=== PATIENT | female | born 1945 | race Caucasian/White ===

== ENCOUNTER 2021-10-15 13:35 | Inpatient (IN) | payer MEDICARE ==
[2021-10-15 15:22] LABS: Actual Bicarbonate (HCO3a) 20.2 mEq/L (22-28); Base Excess (BEa) -4.8 mEq/L (-2.0 to +3.0); CO2 Tension 36.8 mmHg (35.0-45.0); Calcium, Ionized (arterial) 1.13 mmol/L (1.12-1.30); Carboxyhemoglobin (COHb) 1.1 gm% (0.0-3.0); Hemoglobin (Hb) 10.2 g/dL (12.0-16.0); O2 Tension (PaO2), arterial 206.5 mmHg (> 70.0); Potassium - ABG Lab 4.7 mmol/L (3.70-5.30); Puncture Site RRA; pH, Arterial 7.36 (7.35-7.45)
[2021-10-15] MEDS ORDERED: Ondansetron PF 4 MG/2 ML Vial IVP PRN (15:27)
[2021-10-15] MEDS ORDERED: Acetaminophen 325 MG TAB PO PRN (15:27)
[2021-10-15] MEDS ORDERED: Levalbuterol HCl 0.63 MG/3 ML NEB NEB SCH (16:30)
[2021-10-15] MEDS ORDERED: Meropenem 1 GM in Sodium Chloride 0.9% 100 ML IVPB SCH ×2 (16:45→22:00)
[2021-10-15] MEDS: Apixaban 5 MG TAB PO SCH (20:25)
[2021-10-15] MEDS ORDERED: Vancomycin 1 GM in Premix Bag 1 BAG IVPB SCH (21:00)
[2021-10-16] MEDS ORDERED: Meropenem 1 GM in Sodium Chloride 0.9% 100 ML IVPB SCH (04:45)
[2021-10-16 04:49] LABS: #Monocytes 0.7 10x3/uL (0.0-1.1); #Neutrophils 14.4 10x3/uL (1.5-8.4); %Basophils 0.2 % (0.0-2.0); %Eosinophils 0.1 % (0.0-6.0); %Lymphocytes 11.3 % (18.0-47.0); %Monocytes 3.8 % (0.0-10.0); %Neutrophils 83.6 % (40.0-75.0); Hemoglobin 9.4 g/dL (12.0-15.5); Mean Corpuscular HGB CONC 30.8 g/dL (32.0-36.0); Mean Corpuscular Volume 103.7 fl (81.6-98.3); Mean Platelet Volume 10.5 fl (7.4-10.4); Platelet Count 389 10x3/uL (150-450); RBC Distribution Width 17.8 % (11.5-14.5); Red Blood Cell (RBC) Count 2.94 10x6/uL (3.90-5.03); White Blood Cell (WBC) Count 17.2 10x3/uL (3.5-10.5)
[2021-10-16] MEDS ORDERED: Norepinephrine 8 MG/0.9% NS 0 ML ONE (04:56)
[2021-10-16 05:02] LABS: Anion Gap 14 mmol/L (10-20); BUN (Urea Nitrogen) 26 mg/dL (9.8-20.1); Calc. Creatinine Clearance 82 mL/min (70-130); Calcium 8.8 mg/dL (7.8-10.44); Carbon Dioxide 18 mmol/L (23-31); Chloride 110 mmol/L (98-107); Glucose 134 mg/dL (83-110); Sodium 137 mmol/L (136-145)
[2021-10-16] MEDS: Levothyroxine Sodium 75 MCG TAB PO SCH (05:07)
[2021-10-16] MEDS: Levothyroxine Sodium 100 MCG TAB PO SCH (05:07)
[2021-10-16] MEDS ORDERED: Norepinephrine 8 MG/0.9% NS 250 ML IVPB SCH (07:30)
[2021-10-16] MEDS: Furosemide 20 MG/2 ML VIAL SLOW IVP SCH (08:05)
[2021-10-16] MEDS: Apixaban 5 MG TAB PO SCH ×2 (08:05→20:14)
[2021-10-16] MEDS: Aspirin 81 mg Enteric Coated Tablet PO SCH (08:05)
[2021-10-16] MEDS ORDERED: LEVOTHYROXINE SODIUM 200 MCG PO SCH (09:00)
[2021-10-16] MEDS ORDERED: predniSONE 10 MG TAB PO SCH (09:00)
[2021-10-16] MEDS ORDERED: Propranolol HCl LA 60 MG CAP PO SCH (09:00)
[2021-10-16] MEDS: VANCOMYCIN 1.25 GM/250 ML BAG 1.25 GM in Premix Bag 1 BAG IVPB SCH (11:36)
[2021-10-16 12:07] LABS: Lactic Acid 1.5 mmol/L (0.5-2.2)
[2021-10-16 12:11] LABS: Legionella Urinary Ag Negative (Negative); Strep pneumo Urine Ag NEGATIVE (NEGATIVE)
[2021-10-16] MEDS: Meropenem 1 GM in Sodium Chloride 0.9% 100 ML IVPB SCH ×2 (12:31→20:15)
[2021-10-16 13:49] LABS: ALV-art Gradient 276.475 mmHg (0-20); Actual Bicarbonate (HCO3a) 23.3 mEq/L (22-28); Base Excess (BEa) 1.2 mEq/L (-2.0 to +3.0); CO2 Tension 30.3 mmHg (35.0-45.0); Calcium, Ionized (arterial) 1.11 mmol/L (1.12-1.30); O2 Tension (PaO2), arterial 149.1 mmHg (> 70.0); Potassium - ABG Lab 4.1 mmol/L (3.70-5.30); Puncture Site LBA
[2021-10-16] MEDS: methylPREDNISolone Sod Succ/PF 125 MG/2 ML VIAL IVP SCH (17:23)
[2021-10-17 03:31] LABS: Actual Bicarbonate (HCO3a) 25.3 mEq/L (22-28); Base Excess (BEa) 1.1 mEq/L (-2.0 to +3.0); CO2 Tension 38.6 mmHg (35.0-45.0); Calcium, Ionized (arterial) 1.18 mmol/L (1.12-1.30); Carboxyhemoglobin (COHb) 0.3 gm% (0.0-3.0); Hemoglobin (Hb) 9.2 g/dL (12.0-16.0); O2 Tension (PaO2), arterial 124.4 mmHg (> 70.0); Potassium - ABG Lab 4.2 mmol/L (3.70-5.30); Puncture Site RRA; pH, Arterial 7.44 (7.35-7.45)
[2021-10-17 04:59] LABS: #Monocytes 0.3 10x3/uL (0.0-1.1); #Neutrophils 11.7 10x3/uL (1.5-8.4); %Basophils 0.2 % (0.0-2.0); %Lymphocytes 6.7 % (18.0-47.0); %Monocytes 2.5 % (0.0-10.0); %Neutrophils 89.5 % (40.0-75.0); Hemoglobin 8.5 g/dL (12.0-15.5); Mean Corpuscular HGB CONC 30.7 g/dL (32.0-36.0); Mean Corpuscular Hemoglobin 31.6 pg (27.0-33.0); Mean Platelet Volume 10.7 fl (7.4-10.4); Platelet Count 277 10x3/uL (150-450); RBC Distribution Width 17.7 % (11.5-14.5); Red Blood Cell (RBC) Count 2.69 10x6/uL (3.90-5.03); White Blood Cell (WBC) Count 13.1 10x3/uL (3.5-10.5)
[2021-10-17 05:02] LABS: Anion Gap 15 mmol/L (10-20); BUN (Urea Nitrogen) 21 mg/dL (9.8-20.1); CRP (Inflammatory) 20.08 mg/dL (= or < 0.5); Calc. Creatinine Clearance 116 mL/min (70-130); Calcium 8.9 mg/dL (7.8-10.44); Carbon Dioxide 23 mmol/L (23-31); Chloride 108 mmol/L (98-107); Glucose 135 mg/dL (83-110); Potassium 4.5 mmol/L (3.5-5.1); Sodium 141 mmol/L (136-145)
[2021-10-17] MEDS: Levothyroxine Sodium 75 MCG TAB PO SCH (05:05)
[2021-10-17] MEDS: Meropenem 1 GM in Sodium Chloride 0.9% 100 ML IVPB SCH ×3 (05:05→20:16)
[2021-10-17] MEDS: Levothyroxine Sodium 100 MCG TAB PO SCH (05:05)
[2021-10-17] MEDS ORDERED: Lorazepam 2 MG/ML VIAL SLOW IVP SCH (05:30)
[2021-10-17] MEDS: Furosemide 20 MG/2 ML VIAL SLOW IVP SCH (08:20)
[2021-10-17] MEDS: Aspirin 81 mg Enteric Coated Tablet PO SCH (08:21)
[2021-10-17] MEDS: Apixaban 5 MG TAB PO SCH ×2 (08:21→20:16)
[2021-10-17] MEDS: Lantus 1000 UNITS/10 ML VIAL SC SCH (08:51)
[2021-10-17] MEDS ORDERED: Famotidine/PF 20 mg/2ml Vial SLOW IVP SCH (09:00)
[2021-10-17] MEDS ORDERED: Furosemide 40 MG/4 ML VIAL SLOW IVP SCH ×2 (10:15→15:30)
[2021-10-17 11:46] LABS: Vancomycin, Trough 10.6 ug/mL
[2021-10-17] MEDS: VANCOMYCIN 1.75 GM/350 ML BAG 1.75 GM in Premix Bag 1 BAG IVPB SCH (13:00)
[2021-10-17] MEDS: VANCOMYCIN 1.25 GM/250 ML BAG 1.25 GM in Premix Bag 1 BAG IVPB SCH (13:05)
[2021-10-17] MEDS ORDERED: Meropenem 1 GM VIAL ONE (13:10)
[2021-10-17] MEDS: Dexmedetomidine In 0.9 % NaCl 100 ML IVPB SCH ×2 (15:25→22:20)
[2021-10-17] MEDS ORDERED: Dexmedetomidine In 0.9 % NaCl 100 ML ONE (15:25)
[2021-10-17 16:06] LABS: Actual Bicarbonate (HCO3a) 31.2 mEq/L (22-28); Base Excess (BEa) 6.6 mEq/L (-2.0 to +3.0); CO2 Tension 44.4 mmHg (35.0-45.0); Calcium, Ionized (arterial) 1.19 mmol/L (1.12-1.30); Carboxyhemoglobin (COHb) 0.4 gm% (0.0-3.0); Hemoglobin (Hb) 11.2 g/dL (12.0-16.0); O2 Tension (PaO2), arterial 63.5 mmHg (> 70.0); Potassium - ABG Lab 3.6 mmol/L (3.70-5.30); Puncture Site LBA; pH, Arterial 7.46 (7.35-7.45)
[2021-10-17] MEDS: methylPREDNISolone Sod Succ/PF 125 MG/2 ML VIAL IVP SCH (17:13)
[2021-10-17 17:28] LABS: ALV-art Gradient 600.525 mmHg (0-20); Actual Bicarbonate (HCO3a) 29.7 mEq/L (22-28); Base Excess (BEa) 4.8 mEq/L (-2.0 to +3.0); CO2 Tension 45.5 mmHg (35.0-45.0); Calcium, Ionized (arterial) 1.21 mmol/L (1.12-1.30); Carboxyhemoglobin (COHb) 0.6 gm% (0.0-3.0); Hemoglobin (Hb) 11.4 g/dL (12.0-16.0); O2 Tension (PaO2), arterial 55.6 mmHg (> 70.0); Potassium - ABG Lab 3.8 mmol/L (3.70-5.30); Puncture Site RRA; pH, Arterial 7.43 (7.35-7.45)
[2021-10-17] MEDS: Furosemide 40 MG/4 ML VIAL SLOW IVP SCH (20:17)
[2021-10-18] MEDS ORDERED: Lorazepam 2 MG/ML VIAL SLOW IVP SCH (01:45)
[2021-10-18] MEDS ORDERED: Digoxin 0.5 MG/2 ML AMP ONE (03:26)
[2021-10-18] MEDS ORDERED: Digoxin 0.5 MG/2 ML AMP SLOW IVP SCH ×2 (03:45→08:00)
[2021-10-18] MEDS: Dexmedetomidine In 0.9 % NaCl 100 ML IVPB SCH ×3 (03:49→09:52)
[2021-10-18 04:19] LABS: ALV-art Gradient 604.625 mmHg (0-20); Actual Bicarbonate (HCO3a) 31.5 mEq/L (22-28); Base Excess (BEa) 7.6 mEq/L (-2.0 to +3.0); CO2 Tension 41.5 mmHg (35.0-45.0); Calcium, Ionized (arterial) 1.18 mmol/L (1.12-1.30); Carboxyhemoglobin (COHb) 0.7 gm% (0.0-3.0); O2 Tension (PaO2), arterial 56.5 mmHg (> 70.0); Potassium - ABG Lab 3.5 mmol/L (3.70-5.30); Puncture Site RRA
[2021-10-18] MEDS: Levothyroxine Sodium 75 MCG TAB PO SCH (05:08)
[2021-10-18] MEDS: Levothyroxine Sodium 100 MCG TAB PO SCH (05:08)
[2021-10-18] MEDS: Meropenem 1 GM in Sodium Chloride 0.9% 100 ML IVPB SCH ×3 (05:25→20:22)
[2021-10-18 05:35] LABS: Red Blood Cell (RBC) Count 3.24 10x6/uL (3.90-5.03); White Blood Cell (WBC) Count 15.2 10x3/uL (3.5-10.5)
[2021-10-18 05:36] LABS: %Neutrophils 86.2 % (40.0-75.0); Hemoglobin 10.2 g/dL (12.0-15.5); Mean Corpuscular Hemoglobin 31.5 pg (27.0-33.0); Mean Corpuscular Volume 98.5 fl (81.6-98.3); Mean Platelet Volume 11.1 fl (7.4-10.4); RBC Distribution Width 17.6 % (11.5-14.5)
[2021-10-18 05:37] LABS: #Neutrophils 13.1 10x3/uL (1.5-8.4); %Basophils 0.1 % (0.0-2.0); %Lymphocytes 5.5 % (18.0-47.0); %Monocytes 6.5 % (0.0-10.0)
[2021-10-18 05:39] LABS: Platelet Count 352 10x3/uL (150-450)
[2021-10-18 05:41] LABS: ALT (SGPT) 22 U/L (8-55); AST (SGOT) 35 U/L (5-34); Albumin 3.3 g/dL (3.4-4.8); Alkaline Phosphatase 195 U/L (40-110); Anion Gap 21 mmol/L (10-20); BUN (Urea Nitrogen) 29 mg/dL (9.8-20.1); Bilirubin, Total 0.9 mg/dL (0.2-1.2); Calc. Creatinine Clearance 95 mL/min (70-130); Calcium 9.1 mg/dL (7.8-10.44); Carbon Dioxide 26 mmol/L (23-31); Chloride 102 mmol/L (98-107); Globulin 3.1 g/dL (2.4-3.5); Glucose 159 mg/dL (83-110); Magnesium 1.9 mg/dL (1.6-2.6); Phosphorus 3.5 mg/dL (2.3-4.7); Potassium 3.9 mmol/L (3.5-5.1); Protein, Total 6.4 g/dL (5.8-8.1); Sodium 145 mmol/L (136-145)
[2021-10-18 08:57] LABS: CKMB 1.2 ng/mL (0-6.6)
[2021-10-18] MEDS: Enoxaparin Sodium 120 MG/0.8 ML SYRINGE SC SCH ×2 (09:07→20:23)
[2021-10-18] MEDS: Furosemide 40 MG/4 ML VIAL SLOW IVP SCH (09:09)
[2021-10-18] MEDS: Lantus 1000 UNITS/10 ML VIAL SC SCH (09:45)
[2021-10-18] MEDS ORDERED: DISCONTINUE PREVIOUS NARCOTIC PAIN MEDICATIONS AND BENZODIAZEPINES FS SCH (10:15)
[2021-10-18] MEDS ORDERED: Propofol BOLUS 1,000 MG/100 ML VIAL IV PRN (10:15)
[2021-10-18] MEDS ORDERED: Lorazepam 2 MG/ML VIAL SLOW IVP PRN (10:15)
[2021-10-18] MEDS ORDERED: Fentanyl BOLUS 250 ML IVPB PRN (10:15)
[2021-10-18] MEDS ORDERED: Morphine 2 MG/ML VIAL SLOW IVP PRN (10:15)
[2021-10-18] MEDS ORDERED: Fentanyl CADD 100 ML IVPB SCH (10:15)
[2021-10-18] MEDS ORDERED: Ventilator Sedation Protocol 1 EACH FS PRN (10:15)
[2021-10-18 11:35] LABS: Actual Bicarbonate (HCO3a) 30.5 mEq/L (22-28); CO2 Tension 49.2 mmHg (35.0-45.0); Calcium, Ionized (arterial) 1.19 mmol/L (1.12-1.30); Carboxyhemoglobin (COHb) 0.8 gm% (0.0-3.0); Hemoglobin (Hb) 10.7 g/dL (12.0-16.0); O2 Tension (PaO2), arterial 57.6 mmHg (> 70.0); Potassium - ABG Lab 3.8 mmol/L (3.70-5.30); Puncture Site RRA; pH, Arterial 7.41 (7.35-7.45)
[2021-10-18] MEDS ORDERED: Ventilator Sedation Protocol 1 EACH FS SCH (12:00)
[2021-10-18] MEDS: Propofol 1,000 MG/100 ML VIAL IV PRN ×5 (12:14→23:16)
[2021-10-18] MEDS ORDERED: Sodium Chloride 0.9% 1,000 ML IV SCH (12:24)
[2021-10-18] MEDS: Insulin Regular 300 UNITS/3 ML VIAL SC PRN (13:09)
[2021-10-18] MEDS: fentaNYL Citrate-0.9 % NaCl/PF 100 ML IVPB SCH (13:14)
[2021-10-18] MEDS: VANCOMYCIN 1.75 GM/350 ML BAG 1.75 GM in Premix Bag 1 BAG IVPB SCH (13:35)
[2021-10-18] MEDS ORDERED: Sodium Chloride 0.9% 100 ML ONE (13:45)
[2021-10-18] MEDS: Albumin 25% 25 GM/100 ML BOT IVPB SCH ×2 (14:11→20:23)
[2021-10-18] MEDS: methylPREDNISolone Sod Succ/PF 125 MG/2 ML VIAL IVP SCH (17:28)
[2021-10-18] MEDS: Atorvastatin Calcium 40 MG TAB PER TUBE SCH (20:22)
[2021-10-18] MEDS: Famotidine/PF 20 mg/2ml Vial SLOW IVP SCH (20:22)
[2021-10-19] MEDS: Propofol 1,000 MG/100 ML VIAL IV PRN ×8 (02:19→22:26)
[2021-10-19] MEDS: Albumin 25% 25 GM/100 ML BOT IVPB SCH (03:41)
[2021-10-19 04:21] LABS: Hemoglobin 8.6 g/dL (12.0-15.5); Mean Corpuscular HGB CONC 30.6 g/dL (32.0-36.0); Mean Corpuscular Hemoglobin 31.5 pg (27.0-33.0); Mean Corpuscular Volume 102.9 fl (81.6-98.3); Mean Platelet Volume 10.7 fl (7.4-10.4); Platelet Count 280 10x3/uL (150-450); RBC Distribution Width 17.6 % (11.5-14.5); Red Blood Cell (RBC) Count 2.73 10x6/uL (3.90-5.03)
[2021-10-19 04:31] LABS: ALT (SGPT) 17 U/L (8-55); AST (SGOT) 17 U/L (5-34); Albumin 3.3 g/dL (3.4-4.8); Alkaline Phosphatase 133 U/L (40-110); Anion Gap 14 mmol/L (10-20); BUN (Urea Nitrogen) 30 mg/dL (9.8-20.1); Bilirubin, Total 0.8 mg/dL (0.2-1.2); CRP (Inflammatory) 11.35 mg/dL (= or < 0.5); Calc. Creatinine Clearance 114 mL/min (70-130); Calcium 9.2 mg/dL (7.8-10.44); Carbon Dioxide 29 mmol/L (23-31); Chloride 106 mmol/L (98-107); Globulin 2.8 g/dL (2.4-3.5); Glucose 153 mg/dL (83-110); Magnesium 2.2 mg/dL (1.6-2.6); Potassium 3.4 mmol/L (3.5-5.1); Protein, Total 6.1 g/dL (5.8-8.1); Sodium 146 mmol/L (136-145)
[2021-10-19] MEDS: fentaNYL Citrate-0.9 % NaCl/PF 100 ML IVPB SCH ×2 (04:36→20:44)
[2021-10-19 05:10] LABS: MDiff Complete? YES
[2021-10-19 05:13] LABS: Band 4 % (5-11); Lymphocytes 8 % (21-51); Monocytes 5 % (0-10); Neutrophil 83 % (42-75)
[2021-10-19 05:14] LABS: Anisocytosis SLIGHT = 6-15 cells (100X) (0-5/hpf); Hypochromia SLIGHT = 6-15 cells (100X) (0-5/hpf); Platelet Morphology Comment Appears Adequate
[2021-10-19] MEDS: Levothyroxine Sodium 75 MCG TAB PER TUBE SCH (06:13)
[2021-10-19] MEDS: Levothyroxine Sodium 100 MCG TAB PER TUBE SCH (06:13)
[2021-10-19] MEDS: Meropenem 1 GM in Sodium Chloride 0.9% 100 ML IVPB SCH ×3 (06:14→19:51)
[2021-10-19] MEDS ORDERED: Potassium Chloride 20 MEQ TAB PER TUBE SCH (07:30)
[2021-10-19] MEDS ORDERED: Potassium Bicarbonate/Cit Ac 20 MEQ TAB PO SCH (08:00)
[2021-10-19] MEDS: Lantus 1000 UNITS/10 ML VIAL SC SCH (08:29)
[2021-10-19] MEDS: Famotidine/PF 20 mg/2ml Vial SLOW IVP SCH ×2 (08:32→19:51)
[2021-10-19] MEDS: Digoxin 0.5 MG/2 ML AMP SLOW IVP SCH (08:32)
[2021-10-19] MEDS: Enoxaparin Sodium 120 MG/0.8 ML SYRINGE SC SCH ×2 (08:32→19:51)
[2021-10-19] MEDS: Aspirin 81 mg Enteric Coated Tablet PER TUBE SCH (08:33)
[2021-10-19 10:39] LABS: Actual Bicarbonate (HCO3a) 30.8 mEq/L (22-28); Base Excess (BEa) 4.6 mEq/L (-2.0 to +3.0); CO2 Tension 54.8 mmHg (35.0-45.0); Calcium, Ionized (arterial) 1.22 mmol/L (1.12-1.30); Carboxyhemoglobin (COHb) 0.9 gm% (0.0-3.0); Hemoglobin (Hb) 8.8 g/dL (12.0-16.0); O2 Tension (PaO2), arterial 81.5 mmHg (> 70.0); Potassium - ABG Lab 3.5 mmol/L (3.70-5.30); Puncture Site RBA; pH, Arterial 7.37 (7.35-7.45)
[2021-10-19] MEDS ORDERED: Albumin 25% 25 GM/100 ML BOT IVPB SCH (11:00)
[2021-10-19] MEDS ORDERED: Furosemide 40 MG/4 ML VIAL SLOW IVP SCH (11:00)
[2021-10-19 12:08] LABS: Hemoglobin A1c 5.2 % (4.0-6.0)
[2021-10-19] MEDS: Vancomycin 1.5 GRAM/300 ML BAG 1.5 GM in Premix Bag 1 BAG IVPB SCH (12:55)
[2021-10-19] MEDS: methylPREDNISolone Sod Succ/PF 125 MG/2 ML VIAL IVP SCH (17:16)
[2021-10-19] MEDS: Atorvastatin Calcium 40 MG TAB PER TUBE SCH (19:51)
[2021-10-19] MEDS: Senokot S 8.6-50 MG TAB PER TUBE SCH (19:51)
[2021-10-20] MEDS: Propofol 1,000 MG/100 ML VIAL IV PRN ×9 (01:18→23:44)
[2021-10-20 04:09] LABS: #Monocytes 0.8 10x3/uL (0.0-1.1); #Neutrophils 7.2 10x3/uL (1.5-8.4); %Basophils 0.1 % (0.0-2.0); %Lymphocytes 8.3 % (18.0-47.0); %Neutrophils 81.3 % (40.0-75.0); Hemoglobin 8.1 g/dL (12.0-15.5); Mean Corpuscular HGB CONC 29.5 g/dL (32.0-36.0); Mean Corpuscular Hemoglobin 30.9 pg (27.0-33.0); Mean Platelet Volume 11.2 fl (7.4-10.4); Platelet Count 268 10x3/uL (150-450); RBC Distribution Width 17.4 % (11.5-14.5); Red Blood Cell (RBC) Count 2.62 10x6/uL (3.90-5.03); White Blood Cell (WBC) Count 8.9 10x3/uL (3.5-10.5)
[2021-10-20 04:18] LABS: ALT (SGPT) 17 U/L (8-55); AST (SGOT) 21 U/L (5-34); Albumin 3.3 g/dL (3.4-4.8); Alkaline Phosphatase 104 U/L (40-110); Anion Gap 17 mmol/L (10-20); BUN (Urea Nitrogen) 41 mg/dL (9.8-20.1); Bilirubin, Total 0.5 mg/dL (0.2-1.2); Calc. Creatinine Clearance 84 mL/min (70-130); Calcium 9.1 mg/dL (7.8-10.44); Carbon Dioxide 30 mmol/L (23-31); Chloride 107 mmol/L (98-107); Globulin 2.5 g/dL (2.4-3.5); Glucose 164 mg/dL (83-110); Magnesium 2.5 mg/dL (1.6-2.6); Potassium 4.1 mmol/L (3.5-5.1); Protein, Total 5.8 g/dL (5.8-8.1); Sodium 150 mmol/L (136-145)
[2021-10-20 05:03] LABS: Anisocytosis SLIGHT = 6-15 cells (100X) (0-5/hpf); Hypochromia SLIGHT = 6-15 cells (100X) (0-5/hpf)
[2021-10-20 05:04] LABS: Platelet Morphology Comment Appears Adequate
[2021-10-20] MEDS: Levothyroxine Sodium 100 MCG TAB PER TUBE SCH (05:12)
[2021-10-20] MEDS: Levothyroxine Sodium 75 MCG TAB PER TUBE SCH (05:12)
[2021-10-20] MEDS: Meropenem 1 GM in Sodium Chloride 0.9% 100 ML IVPB SCH ×3 (05:12→20:23)
[2021-10-20] MEDS: Digoxin 0.5 MG/2 ML AMP SLOW IVP SCH (08:30)
[2021-10-20] MEDS: Enoxaparin Sodium 120 MG/0.8 ML SYRINGE SC SCH ×2 (08:31→20:23)
[2021-10-20] MEDS: Famotidine/PF 20 mg/2ml Vial SLOW IVP SCH ×2 (08:31→20:23)
[2021-10-20] MEDS: Senokot S 8.6-50 MG TAB PER TUBE SCH ×2 (08:31→20:23)
[2021-10-20] MEDS: Aspirin 81 mg Enteric Coated Tablet PER TUBE SCH (08:31)
[2021-10-20] MEDS: Lantus 1000 UNITS/10 ML VIAL SC SCH (08:33)
[2021-10-20] MEDS ORDERED: Albumin 25% 25 GM/100 ML BOT IVPB SCH (08:45)
[2021-10-20] MEDS ORDERED: Furosemide 40 MG/4 ML VIAL SLOW IVP SCH (08:45)
[2021-10-20] MEDS: Vancomycin 1.5 GRAM/300 ML BAG 1.5 GM in Premix Bag 1 BAG IVPB SCH (12:14)
[2021-10-20 12:46] LABS: Digoxin 1.27 ng/mL (0.8-2.0)
[2021-10-20] MEDS: fentaNYL Citrate-0.9 % NaCl/PF 100 ML IVPB SCH (14:10)
[2021-10-20] MEDS: methylPREDNISolone Sod Succ/PF 125 MG/2 ML VIAL IVP SCH (16:39)
[2021-10-20] MEDS: Atorvastatin Calcium 40 MG TAB PER TUBE SCH (20:23)
[2021-10-21 00:04] LABS: Actual Bicarbonate (HCO3a) 33.6 mEq/L (22-28); Base Excess (BEa) 5.7 mEq/L (-2.0 to +3.0); CO2 Tension 71.9 mmHg (35.0-45.0); Calcium, Ionized (arterial) 1.19 mmol/L (1.12-1.30); Carboxyhemoglobin (COHb) 0.9 gm% (0.0-3.0); Hemoglobin (Hb) 8.8 g/dL (12.0-16.0); Potassium - ABG Lab 3.9 mmol/L (3.70-5.30); Puncture Site RRA; pH, Arterial 7.29 (7.35-7.45)
[2021-10-21 00:07] LABS: ALV-art Gradient 243.275 mmHg (0-20)
[2021-10-21] MEDS ORDERED: Furosemide 40 MG/4 ML VIAL SLOW IVP SCH (00:30)
[2021-10-21] MEDS: Propofol 1,000 MG/100 ML VIAL IV PRN ×8 (02:21→22:38)
[2021-10-21 03:53] LABS: #Neutrophils 8.5 10x3/uL (1.5-8.4); %Basophils 0.1 % (0.0-2.0); %Lymphocytes 7.8 % (18.0-47.0); %Monocytes 9.5 % (0.0-10.0); %Neutrophils 80.1 % (40.0-75.0); Hemoglobin 8.2 g/dL (12.0-15.5); Mean Corpuscular HGB CONC 30.3 g/dL (32.0-36.0); Mean Corpuscular Volume 105.9 fl (81.6-98.3); Mean Platelet Volume 11.2 fl (7.4-10.4); Platelet Count 266 10x3/uL (150-450); RBC Distribution Width 17.2 % (11.5-14.5); Red Blood Cell (RBC) Count 2.56 10x6/uL (3.90-5.03); White Blood Cell (WBC) Count 10.6 10x3/uL (3.5-10.5)
[2021-10-21] MEDS: fentaNYL Citrate-0.9 % NaCl/PF 100 ML IVPB SCH ×2 (04:01→17:04)
[2021-10-21 04:08] LABS: ALT (SGPT) 31 U/L (8-55); AST (SGOT) 36 U/L (5-34); Albumin 3.4 g/dL (3.4-4.8); Alkaline Phosphatase 93 U/L (40-110); Anion Gap 17 mmol/L (10-20); BUN (Urea Nitrogen) 58 mg/dL (9.8-20.1); Bilirubin, Total 0.5 mg/dL (0.2-1.2); Calc. Creatinine Clearance 76 mL/min (70-130); Calcium 8.8 mg/dL (7.8-10.44); Carbon Dioxide 32 mmol/L (23-31); Chloride 106 mmol/L (98-107); Globulin 2.4 g/dL (2.4-3.5); Glucose 159 mg/dL (83-110); Magnesium 2.5 mg/dL (1.6-2.6); Potassium 4.2 mmol/L (3.5-5.1); Protein, Total 5.8 g/dL (5.8-8.1); Sodium 151 mmol/L (136-145)
[2021-10-21 04:12] LABS: Macrocytosis SLIGHT = 6-15 cells (100X) (0-5/hpf); Platelet Morphology Comment Appears Adequate
[2021-10-21] MEDS: Meropenem 1 GM in Sodium Chloride 0.9% 100 ML IVPB SCH ×3 (04:56→21:08)
[2021-10-21] MEDS: Levothyroxine Sodium 75 MCG TAB PER TUBE SCH (05:07)
[2021-10-21] MEDS: Levothyroxine Sodium 100 MCG TAB PER TUBE SCH (05:07)
[2021-10-21 05:25] LABS: ALV-art Gradient 241.225 mmHg (0-20); Actual Bicarbonate (HCO3a) 31.9 mEq/L (22-28); Base Excess (BEa) 3.9 mEq/L (-2.0 to +3.0); CO2 Tension 70.9 mmHg (35.0-45.0); Carboxyhemoglobin (COHb) 0.9 gm% (0.0-3.0); Hemoglobin (Hb) 8.9 g/dL (12.0-16.0); O2 Tension (PaO2), arterial 62.3 mmHg (> 70.0); Puncture Site RRA; pH, Arterial 7.27 (7.35-7.45)
[2021-10-21] MEDS: Enoxaparin Sodium 120 MG/0.8 ML SYRINGE SC SCH ×2 (08:32→21:08)
[2021-10-21] MEDS: methylPREDNISolone Sod Succ 40 MG VIAL IVP SCH ×2 (08:33→16:54)
[2021-10-21] MEDS: Famotidine/PF 20 mg/2ml Vial SLOW IVP SCH ×2 (08:33→21:08)
[2021-10-21] MEDS: Senokot S 8.6-50 MG TAB PER TUBE SCH ×2 (08:33→21:08)
[2021-10-21] MEDS: Aspirin 81 mg Enteric Coated Tablet PER TUBE SCH (08:33)
[2021-10-21] MEDS: Digoxin 0.5 MG/2 ML AMP SLOW IVP SCH (08:33)
[2021-10-21] MEDS: Lantus 1000 UNITS/10 ML VIAL SC SCH (08:37)
[2021-10-21] MEDS ORDERED: Furosemide 100 MG/10 ML VIAL SLOW IVP SCH (09:30)
[2021-10-21 12:13] LABS: Vancomycin, Trough 29.4 ug/mL
[2021-10-21] MEDS: Insulin Regular 300 UNITS/3 ML VIAL SC PRN (15:24)
[2021-10-21] MEDS: Atorvastatin Calcium 40 MG TAB PER TUBE SCH (21:08)
[2021-10-22] MEDS: methylPREDNISolone Sod Succ 40 MG VIAL IVP SCH ×3 (00:51→17:00)
[2021-10-22] MEDS: Propofol 1,000 MG/100 ML VIAL IV PRN ×9 (01:26→23:41)
[2021-10-22] MEDS: fentaNYL Citrate-0.9 % NaCl/PF 100 ML IVPB SCH ×2 (04:38→17:00)
[2021-10-22 04:42] LABS: Mean Corpuscular HGB CONC 29.3 g/dL (32.0-36.0); Mean Corpuscular Hemoglobin 31.3 pg (27.0-33.0); Mean Corpuscular Volume 106.6 fl (81.6-98.3); Mean Platelet Volume 11.4 fl (7.4-10.4); Platelet Count 312 10x3/uL (150-450); RBC Distribution Width 17.3 % (11.5-14.5); Red Blood Cell (RBC) Count 2.88 10x6/uL (3.90-5.03); White Blood Cell (WBC) Count 15.3 10x3/uL (3.5-10.5)
[2021-10-22] MEDS: Meropenem 1 GM in Sodium Chloride 0.9% 100 ML IVPB SCH ×3 (04:45→20:48)
[2021-10-22 04:55] LABS: ALT (SGPT) 68 U/L (8-55); AST (SGOT) 77 U/L (5-34); Albumin 3.5 g/dL (3.4-4.8); Alkaline Phosphatase 111 U/L (40-110); Anion Gap 17 mmol/L (10-20); BUN (Urea Nitrogen) 74 mg/dL (9.8-20.1); Bilirubin, Total 0.6 mg/dL (0.2-1.2); Calc. Creatinine Clearance 76 mL/min (70-130); Calcium 8.8 mg/dL (7.8-10.44); Carbon Dioxide 34 mmol/L (23-31); Chloride 106 mmol/L (98-107); Globulin 2.6 g/dL (2.4-3.5); Glucose 166 mg/dL (83-110); Magnesium 2.9 mg/dL (1.6-2.6); Potassium 4.6 mmol/L (3.5-5.1); Protein, Total 6.1 g/dL (5.8-8.1); Sodium 152 mmol/L (136-145)
[2021-10-22 05:08] LABS: MDiff Complete? YES
[2021-10-22 05:11] LABS: Lymphocytes 7 % (21-51); Metamyelocyte 1 % (0-0); Monocytes 16 % (0-10); Neutrophil 76 % (42-75); Nucleated RBC 1 % (0)
[2021-10-22 05:12] LABS: Macrocytosis SLIGHT = 6-15 cells (100X) (0-5/hpf)
[2021-10-22 05:13] LABS: Platelet Morphology Comment Appears Adequate; Stomatocytes SLIGHT = 2-5 cells (100X) (0-1/hpf)
[2021-10-22] MEDS: Levothyroxine Sodium 100 MCG TAB PER TUBE SCH (05:13)
[2021-10-22] MEDS: Levothyroxine Sodium 75 MCG TAB PER TUBE SCH (05:13)
[2021-10-22] MEDS: Famotidine/PF 20 mg/2ml Vial SLOW IVP SCH ×2 (08:41→20:46)
[2021-10-22] MEDS: Furosemide 100 MG/10 ML VIAL SLOW IVP SCH (08:41)
[2021-10-22] MEDS: Digoxin 0.5 MG/2 ML AMP SLOW IVP SCH (08:42)
[2021-10-22] MEDS: Aspirin 81 mg Enteric Coated Tablet PER TUBE SCH (08:43)
[2021-10-22] MEDS: Senokot S 8.6-50 MG TAB PER TUBE SCH ×2 (08:43→20:50)
[2021-10-22] MEDS: Enoxaparin Sodium 120 MG/0.8 ML SYRINGE SC SCH ×2 (08:43→20:48)
[2021-10-22] MEDS: Lantus 1000 UNITS/10 ML VIAL SC SCH (08:44)
[2021-10-22] MEDS: Insulin Regular 300 UNITS/3 ML VIAL SC PRN ×3 (13:13→23:53)
[2021-10-22] MEDS: Atorvastatin Calcium 40 MG TAB PER TUBE SCH (20:46)
[2021-10-23] MEDS: methylPREDNISolone Sod Succ 40 MG VIAL IVP SCH ×2 (00:54→07:56)
[2021-10-23] MEDS: Propofol 1,000 MG/100 ML VIAL IV PRN ×5 (03:24→14:41)
[2021-10-23] MEDS: fentaNYL Citrate-0.9 % NaCl/PF 100 ML IVPB SCH (04:39)
[2021-10-23 05:13] VITALS: TEMP 101.3
[2021-10-23] MEDS: Levothyroxine Sodium 75 MCG TAB PER TUBE SCH (05:16)
[2021-10-23] MEDS: Meropenem 1 GM in Sodium Chloride 0.9% 100 ML IVPB SCH ×2 (05:16→12:47)
[2021-10-23] MEDS: Levothyroxine Sodium 100 MCG TAB PER TUBE SCH (05:16)
[2021-10-23 05:25] VITALS: BMI 31.3
[2021-10-23] MEDS: Furosemide 100 MG/10 ML VIAL SLOW IVP SCH (07:56)
[2021-10-23] MEDS: Digoxin 0.5 MG/2 ML AMP SLOW IVP SCH (07:57)
[2021-10-23] MEDS: Famotidine/PF 20 mg/2ml Vial SLOW IVP SCH (07:57)
[2021-10-23] MEDS: Enoxaparin Sodium 120 MG/0.8 ML SYRINGE SC SCH (07:57)
[2021-10-23] MEDS: Lantus 1000 UNITS/10 ML VIAL SC SCH ×2 (08:09→08:16)
[2021-10-23] MEDS: Aspirin 81 mg Enteric Coated Tablet PER TUBE SCH (09:16)
[2021-10-23] MEDS: Senokot S 8.6-50 MG TAB PER TUBE SCH (09:16)
[2021-10-23 11:17] VITALS: BP 128/62
[2021-11-14] MEDS ORDERED: Succinylcholine 200 MG/10 ml SYRINGE FS ONE (07:00)
== END 2021-10-23 16:26 | disposition hospice, inpatient (51) | DRG 870 ==
LOC: CSHIMCU 13:35
PROVIDERS: ADMIT Internal Medicine; ATTEND Family Medicine
PROC: 5A09457 Assistance with Respiratory Ventilation, 24-96 Consecutive Hours, Continuous Positive Airway Pressure (ICD-10-PCS; 2021-10-15)
PROC: 3E033XZ Introduction of Vasopressor into Peripheral Vein, Percutaneous Approach (ICD-10-PCS; 2021-10-16)
PROC: 5A1955Z Respiratory Ventilation, Greater than 96 Consecutive Hours (ICD-10-PCS; principal; 2021-10-18)
PROC: 0BH17EZ Insertion of Endotracheal Airway into Trachea, Via Natural or Artificial Opening (ICD-10-PCS; 2021-10-18)
PROC: 02HV33Z Insertion of Infusion Device into Superior Vena Cava, Percutaneous Approach (ICD-10-PCS; 2021-10-18)
PROC: 0T9B70Z Drainage of Bladder with Drainage Device, Via Natural or Artificial Opening (ICD-10-PCS; 2021-10-18)
DX: A41.9 Sepsis, unspecified organism (principal); R65.21 Severe sepsis with septic shock; J18.9 Pneumonia, unspecified organism; G93.41 Metabolic encephalopathy; J80 Acute respiratory distress syndrome; N17.9 Acute kidney failure, unspecified; E87.2 Acidosis; J84.9 Interstitial pulmonary disease, unspecified; I24.8 Other forms of acute ischemic heart disease; E27.40 Unspecified adrenocortical insufficiency; M06.9 Rheumatoid arthritis, unspecified; E03.9 Hypothyroidism, unspecified; I12.9 Hypertensive chronic kidney disease with stage 1 through stage 4 chronic kidney disease, or unspecified chronic kidney disease; E78.5 Hyperlipidemia, unspecified; E66.9 Obesity, unspecified; F41.9 Anxiety disorder, unspecified; F32.A Depression, unspecified; I48.0 Paroxysmal atrial fibrillation; D63.1 Anemia in chronic kidney disease; M79.81 Nontraumatic hematoma of soft tissue; N18.31 Chronic kidney disease, stage 3a; R73.9 Hyperglycemia, unspecified; E87.6 Hypokalemia; Z86.711 Personal history of pulmonary embolism; Z79.01 Long term (current) use of anticoagulants; Z86.16 Personal history of COVID-19; Z88.1 Allergy status to other antibiotic agents; Z88.8 Allergy status to other drugs, medicaments and biological substances; Z79.82 Long term (current) use of aspirin; Z79.899 Other long term (current) drug therapy; Z90.710 Acquired absence of both cervix and uterus; Z98.890 Other specified postprocedural states; Z87.891 Personal history of nicotine dependence; Z68.31 Body mass index [BMI] 31.0-31.9, adult; Z78.1 Physical restraint status
CPT/HCPCS: 36415; 36416; 36600; 71045; 80048; 80053; 80162; 80202; 82533; 82553; 82805; 83036; 83605; 83735; 83880; 84100; 84145; 84443; 84484; 85025; 86140; 87070; 87081; 87205; 87449; 87804; 87899; 93005; 93010; 93306; 94002; 94003; 94640; 94660; 94760; J1160; J1650; J1815; J1940; J2060; J2185; J2704; J2920; J2930; J3370; J3490; J7050; J7512; J7620; P9047; S0028

== ENCOUNTER 2021-10-23 16:41 | Inpatient (IN) | payer OTHER ==
[2021-10-23 17:02] VITALS: BMI 42.0
[2021-10-23 17:07] VITALS: BP 118/62; TEMP 97.3
[2021-10-23] MEDS ORDERED: diphenhydrAMINE 50 MG/ML VIAL IVP PRN (17:12)
[2021-10-23] MEDS ORDERED: Ondansetron PF 4 MG/2 ML Vial IVP PRN (17:12)
[2021-10-23] MEDS ORDERED: Morphine 4 MG/ML VIAL SLOW IVP PRN ×2 (17:19→17:22)
[2021-10-23] MEDS ORDERED: Lorazepam 2 MG/ML VIAL SLOW IVP PRN (17:20)
[2021-10-23] MEDS ORDERED: Morphine 4 MG/ML VIAL SLOW IVP SCH (17:30)
[2021-10-23] MEDS ORDERED: Lorazepam 2 MG/ML VIAL SLOW IVP SCH (17:30)
[2021-10-23] MEDS ORDERED: Scopolamine 1.5 mg/72 hour Patch TOP SCH (18:00)
== END 2021-10-23 19:30 | disposition expired | DRG 951 ==
LOC: CSHTELE 16:41 → CSHIMCU 16:56
PROVIDERS: ADMIT Family Medicine; ATTEND Family Medicine
DX: Z51.5 Encounter for palliative care (principal); J96.01 Acute respiratory failure with hypoxia; A41.9 Sepsis, unspecified organism; N17.9 Acute kidney failure, unspecified; E87.2 Acidosis; I11.0 Hypertensive heart disease with heart failure; I50.9 Heart failure, unspecified; E03.9 Hypothyroidism, unspecified; Z88.1 Allergy status to other antibiotic agents; Z91.048 Other nonmedicinal substance allergy status; Z86.711 Personal history of pulmonary embolism; Z79.01 Long term (current) use of anticoagulants; Z86.16 Personal history of COVID-19; Z79.890 Hormone replacement therapy; Z79.82 Long term (current) use of aspirin; Z79.899 Other long term (current) drug therapy; Z79.52 Long term (current) use of systemic steroids; Z90.710 Acquired absence of both cervix and uterus; Z87.891 Personal history of nicotine dependence
CPT/HCPCS: J2060; J2270